=== PATIENT | female | born 2000 | race African-American/Black ===

== ENCOUNTER 2022-06-06 20:18 | Emergency (ER) | payer OTHER ==
[~2022-06-06] VITALS: Ht 165.1 cm; Wt 49.8 kg
--- NOTE | 2022-06-06 20:46 | ED General ---
General Chief Complaint: General Problems/Pain Stated Complaint: MEDICAL CLEARENCE Source of Information: Patient, Police Exam Limitations: Other (uncooperative and fighting [place]) History of Present Illness Date Seen by Provider: Jun 06, 2022 Time Seen by Provider: 20:18 Initial Comments 22-year-old female presenting with law enforcement for clearance for incarceration. She was agitated and fighting with law enforcement. She was spitting and trying to bite and kick the officers. she was hyperventilating herself and did have a brief 15-20 second period where she may have caused herself to pass out due to her hyperventilating. However, as I was listening to her lungs and heart while she was not screaming and fighting she raised her head up and tried to bite me and the officers. She may have just been pretending to faint to presumably try and get the police to let their guard down so she could bite one of them. She was moving all extremities as she was trying to kick and hit anyone close to her. She was breathing well as she was yelling and screaming and arguing with the officers. Associated Systoms: No Diaphoresis, No Nausea/Vomiting, No Shortness of Air, No Weakness Allergies and Home Medications Allergies Coded Allergies: No Known Drug Allergies (Unverified , 06/06/22) Patient Home Medication List Home Medication List Reviewed: Yes Review of Systems Review of Systems Constitutional: no symptoms reported EENTM: no symptoms reported Respiratory: no symptoms reported Cardiovascular: no symptoms reported Gastrointestinal: no symptoms reported Genitourinary: no symptoms reported Musculoskeletal: other (complains that the handcuffs were too tight ) Skin: see HPI (reports she has bruises and box on her legs from fighting the officers tonight) Psychiatric/Neurological: Emotional Problems Past [id number] Hx Past Medical History Surgery/Hospitalization HX: Unable to obtain Physical Exam Vital Signs Capillary Refill : Height, Weight, BMI Height: '" Weight: lbs. oz. kg; BMI Method: General Appearance: WD/WN, Other (fighting with law enforcement and screaming and yelling as well as trying to spit on and bite anyone that gets near her) Eyes: Bilateral Eye PERRL, Bilateral Eye EOMI HEENT: PERRL/EOMI, Pharynx Normal Neck: Full Range of Motion, Normal Inspection, Non Tender, Supple Respiratory: Chest Non Tender, Lungs Clear, Normal Breath Sounds Cardiovascular: Regular Rate, Rhythm, Normal Peripheral Pulses Gastrointestinal: No Pulsatile Mass, Non Tender, Soft Extremity: Normal Capillary Refill, Normal Range of Motion, No Pedal Edema, Other (superficial abrasions and contusions to legs that appear older than what I would expect from happening right now as she was fighting the [place]. 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 She was uncooperative with staff as well as law enforcement. Departure Impression Primary Impression: Medical clearance for incarceration Disposition: 01 HOME, SELF-CARE Condition: Stable Departure-Patient Inst. Decision time for Depature: 20:45 Referrals: NO,LOCAL PHYSICIAN (PCP) Primary Care Physician [facility] [place]. Discharge Instructions: Medically stable and clear to go with law enforcement for incarceration. Follow up with [facility] or clinic of your choice for continued concerns All discharge instructions reviewed with patient and/or family. Voiced understanding. ODALYS SMITH MD Jun 06, 2022 20:46
== END 2022-06-06 21:08 | disposition home or self-care (01) ==
LOC: ER FS 20:43
DX: S80.12XA Contusion of left lower leg, initial encounter (principal); S80.11XA Contusion of right lower leg, initial encounter; Z02.89 Encounter for other administrative examinations; Z28.310 Unvaccinated for COVID-19; X58.XXXA Exposure to other specified factors, initial encounter